=== PATIENT | male | born 1990 | race Asian ===

== ENCOUNTER 2022-06-11 18:26 | Emergency (ER) | payer BC ==
[2022-06-11] MEDS ORDERED: Lidocaine 1% (PF) 30 ML VIAL ONE (19:12)
[2022-06-11] MEDS ORDERED: Boostrix 0.5 ML (Tdap) VIAL (>/=7 yrs of age) ONE (19:12)
[2022-06-11] MEDS ORDERED: Bacitracin 1 PK ONE (20:53)
== END 2022-06-11 20:59 | disposition home or self-care (01) ==
LOC: CSHERS 18:26
DX: S61.412A Laceration without foreign body of left hand, initial encounter (principal); W25.XXXA Contact with sharp glass, initial encounter; Z23 Encounter for immunization
CPT/HCPCS: 12002; 90471; 90715; J2001